=== PATIENT | male | born 1955 | race African-American/Black ===

== ENCOUNTER → 2018-05-14 | Outpatient (CLI) | payer OTHER ==
--- NOTE | 2018-05-14 17:32 | RAD ---
Bilateral lower extremity venous Doppler: Reason for examination: Bilateral leg swelling and left knee swelling. Status post surgery in February 2018. The right and left lower extremity venous systems were evaluated from the common femoral and greater saphenous veins distally to the calf veins with grayscale imaging, color-flow imaging and spectral analysis. There appears to be normal blood flow in the venous structures. There is normal response of the venous systems to compression and augmentation. No deep venous thrombosis is present. There does appear to be fluid around the left knee anteriorly. IMPRESSION: No deep venous thrombosis in the right or left lower extremity venous systems. Fluid present anterior around the left knee. Electronically signed by: Susi Langley MD (05/14/2018 5:28 PM) [id number]
== END | disposition home or self-care (01) ==
LOC: US 16:26
DX: M79.605 Pain in left leg (principal); M79.604 Pain in right leg; M79.89 Other specified soft tissue disorders
CPT/HCPCS: 93970